=== PATIENT | male | born 1995 | race Caucasian/White ===

== ENCOUNTER 2017-07-11 10:25 | Emergency (ER) | payer OTHER ==
[2017-07-11 10:32] VITALS: RESP 18
--- NOTE | 2017-07-11 10:52 | ED ---
Male Urogenital HPI - General Chief complaint: Urogenital Stated complaint: painful urination Time Seen by Provider: 07/11/17 10:40 Source: patient Mode of arrival: ambulatory Limitations: no limitations - History of Present Illness Initial comments: This 21-year-old white male presents with the complaint of some dysuria. He states that the symptoms came on this morning. He states that he had severe pain with urination. He denies any penile discharge. There has not been any fevers, chills, abdominal pain, or flank pain. He last had unprotected intercourse approximately a month and a half ago. No other complaints or modifying factors. - Related Data Previous Rx's Medication Instructions Recorded Doxycycline Hyclate [Vibramycin] 100 mg PO BID #14 cap 07/11/17 Allergies Allergy/AdvReac Type Severity Reaction Status Date / Time Sulfa (Sulfonamide Allergy Unknown Verified 07/11/17 10:48 Antibiotics) Review of Systems ROS Statement: Those systems with pertinent positive or pertinent negative responses have been documented in the HPI. ROS Other: All systems not noted in ROS Statement are negative. Past Medical History Past Medical History: No Reported History History of Any Multi-Drug Resistant Organisms: None Reported Past Surgical History: Orthopedic Surgery Additional Past Surgical History / Comment(s): left ankle surgery Past Psychological History: No Psychological Hx Reported Smoking Status: Never smoker Past Alcohol Use History: None Reported Past Drug Use History: None Reported General Exam Limitations: no limitations General appearance: alert, in no apparent distress GI/Abdominal exam: Present: soft. Absent: distended, tenderness, guarding, rebound, rigid Back exam: Present: normal inspection. Absent: tenderness Neurological exam: Present: alert, oriented X3 Psychiatric exam: Present: normal affect, normal mood. Absent: agitated Skin exam: Present: intact. Absent: rash Course Vital Signs 07/11/17 07/11/17 10:30 11:28 Temperature 97.2 F L 97.0 F L Pulse Rate 68 61 Respiratory 18 18 Rate Blood Pressure 122/68 120/58 O2 Sat by Pulse 100 100 Oximetry Medical Decision Making - Medical Decision Making The patient was seen and examined. All diagnostics were reviewed. A urinalysis does not show any acute process. The chlamydia and gonorrhea testing is pending. It is felt as though he likely does have a urethritis secondary to possible STD. He is given Rocephin 250 mg IM. He is counseled regarding safe sex and he should have close follow-up with primary care physician for follow-up with the current testing and for potential need for a comprehensive STD testing. - Lab Data Lab Results 07/11/17 Range/Units 10:55 Urine Color Yellow Urine Appearance Clear (Clear) Urine pH 5.5 (5.0-8.0) Ur Specific [place] 1.017 (1.001-1.035) Urine Protein Negative (Negative) Urine Glucose (UA) Negative (Negative) Urine Ketones Negative (Negative) Urine Blood Negative (Negative) Urine Nitrite Negative (Negative) Urine Bilirubin Negative (Negative) Urine Urobilinogen <2.0 (<2.0) mg/dL Ur Leukocyte Esterase Negative (Negative) Disposition Clinical Impression: Dysuria Disposition: HOME SELF-CARE Condition: Good Instructions: Nonspecific Urethritis in Men (ED) Additional Instructions: Please follow-up with your doctor in 2 days for results of your testing and for comprehensive evaluation of possible other sexually transmitted diseases. Please practices safe sex methods. Prescriptions: Doxycycline Hyclate [Vibramycin] 100 mg PO BID #14 cap Referrals: None,Stated [Primary Care Provider] - 1-2 days Time of Disposition: 11:40
[2017-07-11] MEDS ORDERED: cefTRIAXone 250 MG VIAL IM STA (11:06)
[2017-07-11 11:25] LABS: Appearance,Urine Clear (Clear); Bilirubin,Urine Negative (Negative); Glucose,Urine (UA) Negative (Negative); Ketones,Urine Negative (Negative); Leukocyte Esterase,Urine Negative (Negative); Nitrite,Urine Negative (Negative); PH, Urine 5.5 (5.0-8.0); Protein,Urine Negative (Negative); Specific Gravity,Urine 1.017 (1.001-1.035); UA Billing (MACRO vs. MICRO) CHEM; Urobilinogen,Urine <2.0 mg/dL (<2.0)
[2017-07-11 11:29] VITALS: BP 120/58; PULSE 61; TEMP 97
== END 2017-07-11 11:45 | disposition home or self-care (01) ==
LOC: EC 10:25
DX: R30.0 Dysuria (principal); Z88.2 Allergy status to sulfonamides
CPT/HCPCS: 81003; 87491; 87591; 99283; 96372; J0696